=== PATIENT | female | born 1960 | race Caucasian/White ===

== ENCOUNTER 2025-02-13 13:46 | Inpatient (IN) | payer BC, SELFPAY ==
[2025-02-13] VITALS (14 sets, daily range): BP systolic 105–133; BP diastolic 4–84; BMI 18.8; BMI 19.0
[2025-02-13 10:53] LABS: Hematocrit 40.9 % (37.0-47.0); Hemoglobin 13.7 g/dL (12.0-16.0); Mean Corp Hgb Conc. 33.5 g/dL (33.0-37.0); Mean Corpuscular Volume 87.0 fL (81.0-99.0); Nucleated Red Blood Cells % 0 %; Platelet Count 355 10^3/uL (130-400); Red Cell Dist. Width 12.7 % (11.5-14.5)
--- NOTE | 2025-02-13 10:55 | ED.GENMED ---
History of Present Illness
General
Chief Complaint: Cough
Time Seen by Provider: 02/13/25 10:32
History of Present Illness
History of Present Illness:
64-year-old female with history of tobacco abuse, asthma, anxiety presenting to the emergency department for persistent cough and shortness of breath. Patient reports ongoing symptoms for about a month. She was initially seen by her doctor, had a
chest x-ray that showed a pneumonia. She was subsequently prescribed about 3 days of antibiotics, however notes that she did not have any interval improvement. She then was given a steroid, however was still symptomatic. She just [place]
the local beach, notes while she was there was very short of breath with minimal exertion, continues to cough. Denies any fever. Denies chest pain. Reports that her heart rate has also been very elevated. Denies any history of blood clots,
recent surgery, recent travel, exogenous estrogen. Denies any swelling to her legs. Patient went to urgent care prior to arrival and they noted that her chest x-ray was significantly worse than prior, prompting her to come to the hospital. Denies
additional acute medical complaints
Past History
Past History
ED Past Medical History: COPD and Other (Patient is medicated currently with Tegretol for facial pain.)
ED Past Surgical History: Gynecological
Social History
Tobacco: Smoker
Alcohol: None
Drug: None
Living: alone
Employment: Employed
Family History
Family History: Other (Noncontributory)
Phy Exam
Physical Exam
Physical Exam:
General: Well-appearing, no clinical signs of dehydration, nontoxic and in no acute distress
HEENT: protecting airway
Neck: appears supple
CV: Tachycardic, regular rhythm
Resp: Mild tachypnea with slight end expiratory wheezing
Abd: No distention
Extremities: No deformities, no swelling
Neuro: alert, no focal neurologic deficit
: deferred
Rectal: deferred
Psych: Normal affect
Skin: Intact
Course
Orders/Labs/Results
Orders:
Orders
02/13/25 08:46
EKG [Electrocardiogram (*1)] Urgent
Reason for Study: Tachycardia
EKG- Treatment ONCE
02/13/25 10:14
CR Chest - 2 Views Urgent
Comment:
Reason For Exam: shortness of breath
02/13/25 10:39
Complete Blood Count/With Diff Urgent
Comprehensive Metabolic Panel Urgent
Magnesium Urgent
Pro-BNP [NT-proBNP] Urgent
02/13/25 10:48
CT Chest PE Study Urgent
Comment:
Reason For Exam: abnormal CT, tachycardic, SOB
02/13/25 10:52
Ipratropium/Albuterol Sulfate [Duoneb] 3 ml INH R NOW ONE
Abnormal Lab Results
02/13/25
10:39
WBC 12.4 H 10^3/uL
(4.8-10.8)
Abs Immat Gran (auto) 0.1 H 10^3/uL
(0-0.05)
Absolute Neuts (auto) 9.9 H 10^3/uL
(1.4-6.5)
Absolute Monos (auto) 0.9 H 10^3/uL
(0.1-0.6)
Neutrophils % 80.0 H %
(42.2-75.2)
Lymphocytes % 11.8 L %
(20.5-51.1)
BUN 26 H mg/dl
(7-17)
Glucose 141 H mg/dl
(70-99)
02/13/25 10:39
02/13/25 10:39
Vital Signs
Initial and Last Documented VS:
Initial Vital Signs
Temp Pulse Resp BP Pulse Ox
97.5 F 121 18 125/83 95
02/13/25 08:40 02/13/25 08:40 02/13/25 08:40 02/13/25 08:40 02/13/25 08:40
Last Documented Vital Signs
Temp Pulse Resp BP Pulse Ox
97.5 F 100 20 121/77 100
02/13/25 11:59 02/13/25 11:59 02/13/25 11:59 02/13/25 11:59 02/13/25 11:59
MDM/Problems Addressed
MDM/Problems Addressed:
64-year-old female with history of tobacco abuse and asthma presenting for persistent cough for the past month. Vital signs on arrival significant for tachycardia.
On exam patient is in no acute respiratory distress, slightly tachypneic. Slight end expiratory wheezing on lung exam without focal abnormal lung sounds. Concern for failure of outpatient therapy and worsening pneumonia. Will obtain chest x-ray
imaging to better evaluate as well as laboratory analysis in the setting of dyspnea and tachycardia.
11:00 - Chest x-ray shows large consolidation to the right lung field. Given patient's tobacco abuse, concern for possible mass and underlying malignant process, particularly given duration of symptoms. PE is also consideration in the setting of
potential malignancy tachycardia, dyspnea. For this reason we will obtain CT PE imaging
13:00 -no evidence of PE, however CT is concerning for large mass in the right upper lobe with lymphatic spread. Given patient's presenting hypoxia and persistent tachycardia, feel patient warrants admission. Patient updated, as well as daughter
at bedside.
*Pulse Oximetry
SaO2: 96
Nasal Cannula flow liters per minute: 3
Oxygen Mode of Delivery: Room air
Patient hypoxic: no
*EKG
Interpreted by ED Provider?: Yes
EKG Intrepretation Date: 02/13/25
EKG Intrepretation Time: 10:58
Interpretation: normal
Comparison EKG: no changes
Heart Rate: 106
Rate: tachycardiac
Rhythm: sinus
[place]: normal axis
Interval: normal interval
QRS Pattern: normal QRS
Ischemia: no ischemia
*Critical Care Note
Total Time (30-74mins, 75-104mins- exclusive of procedures): Not Applicable
ED Attending Note
-
Portions of this chart may have been created with voice recognition software.� Occasional wrong word or��sound alike� substitutions may have occurred due to the inherent limitations of voice recognition software.
Discharge Plan
Departure
Prescriptions:
No Action
albuterol sulfate 90 mcg/actuation Hfa Aerosol Inhaler
1 inh INHALATION Q4H PRN (Reason: SOB)
diazepam 5 mg Tablet
5 mg PO BID PRN (Reason: anxiety)
mirtazapine 7.5 mg Tablet
7.5 mg PO HS
Trelegy Ellipta 200-62.5-25 mcg Blister With Device
1 inh INHALATION DAILY
Referrals:
Shaq Maynard DO [Family Provider, Family Practice]
Interventions
Interventions:
*Risk Screen - Suicide Last Done: 02/13/25 08:40
*General Assessment Last Done: 02/13/25 08:40
*Neglect/Abuse Screening Last Done: 02/13/25 10:49
*ED COVID-19 Vaccine History Last Done: 02/13/25 08:40
ED- Pulmonary Assessment Last Done: 02/13/25 10:49
Discharge Date and Time
Print Language: BANGLADESHI
[2025-02-13 11:15] LABS: ALT (SGPT) 13 U/L (0-35); AST (SGOT) 20 U/L (14-36); Albumin 3.8 g/dl (3.5-5.0); Alkaline Phosphatase 64 U/L (38-126); Blood Urea Nitrogen 26 mg/dl (7-17); Calcium 9.9 mg/dl (8.4-10.2); Carbon Dioxide 30 mmol/L (22-30); Chloride 105 mmol/L (98-107); Estimated Creatinine Clearance 73 ml/min; Glucose 141 mg/dl (70-99); Magnesium 2.0 mg/dl (1.6-2.3); Potassium 3.9 mmol/L (3.5-5.1); Sodium 139 mmol/L (135-145); Total Protein 6.4 g/dl (6.3-8.2); eGFR > 60.00
[2025-02-13] MEDS: DUONEB 3 ML INH ×3 (11:51→20:32)
--- NOTE | 2025-02-13 13:19 | HPS.HSE ---
Family Physician
-
Family Physician: Shaq Maynard
Chief Complaint
-
worsening cough and SOB: failed OP ABx + PO steroids
History of Present Illness
64F HX tobacco abuse and asthma seen at ER:
worsening cough and SOB for the past month.
- Seen by PCP at onset, started on abx, then steroids, without improvement.
- Went to urgent care a few days ago, CXR looked worse, started on levofloxacin yesterday.
- Increasing dyspneic. Hypoxic and tachy here. Some scattered wheezes on lung exam, slight tachypnea.
CXR showed large infiltrate/mass in RUL, so did CT which shows lung cancer with lymph spread.
Medical History
Past Medical History
Past Medical History: Reports Asthma and Psychiatric (anxiety and depression)
Past Surgical History: Reports None
Social History
Tobacco: Smoker
Family History
Family History: Not pertinent
Allergies / Home Medications
Allergies reflects when Allergies were last updated in [facility].
Home Medications with original date entered in [facility]
Allergy/Medication List:
Allergies
Allergy/AdvReac Type Severity Reaction Status Date / Time
Penicillins Allergy Hives Verified 02/13/25 08:44
Home Medications
albuterol sulfate 90 mcg/actuation aerosol inhaler 1 inh inhalation Q4H PRN SOB 02/13/25
diazepam 5 mg tablet 5 mg PO BID PRN anxiety 02/13/25
fluticasone fur. 200 mcg-umeclid 62.5 mcg-vilant 25 mcg inhalat.powder (Trelegy Ellipta) 1 inh inhalation DAILY 02/13/25
mirtazapine 7.5 mg tablet 7.5 mg PO HS 02/13/25
Review of Systems
-
Constitutional: Reports No Symptoms
EENT: Reports No Symptoms
Respiratory: Reports See HPI, Cough and Trouble Breathing
Cardiac: Reports No Symptoms
Abdomen/GI: Reports No Symptoms
: Reports No Symptoms
Musculoskeletal: Reports No Symptoms
Skin: Reports No Symptoms
Neurological: Reports No Symptoms
Endocrine: Reports No Symptoms
Hematologic/Lymphatic: Reports No Symptoms
Psych: Reports No Symptoms
Physical Exam
Vital Signs
Vital Signs
Temp Pulse Resp BP Pulse Ox
97.5 F 100 20 121/77 100
02/13/25 11:59 02/13/25 11:59 02/13/25 11:59 02/13/25 11:59 02/13/25 11:59
Physical Exam
General: Well Developed, Well Nourished and No Apparent Distress
HEENT: NormoCephalic, Moist mucous membranes and Atraumatic
Respiratory: Wheezes
Cardiac: S1/S2 and Regular Rhythm; No Murmur or Rub
GI: Soft, Non Tender, Non Distended and Normal Bowel Sounds; No Organomegaly
Rectal: Deferred by Provider
Musculoskeletal: No Clubbing, No Cyanosis and No Edema
Skin: No Rash
Neuro: Nonfocal/grossly intact
Laboratory Results
-
02/13/25 10:39
02/13/25 10:39
Laboratory Results
Total Bilirubin 0.6 mg/dl (0.2-1.3) 02/13/25 10:39
AST 20 U/L (14-36) 02/13/25 10:39
ALT 13 U/L (0-35) 02/13/25 10:39
Alkaline Phosphatase 64 U/L (38-126) 02/13/25 10:39
Data Reviewed
-
Diagnostic Radiology: Report Reviewed by me
CT Scan: Report Reviewed by me
Lab Data: Labs Reviewed by me
Impression/Plan
-
Selected Entries
02/13/25
10:49 02/13/25
10:58
SaO2 96 96
Nasal Cannula flow liters per minute 3 3
Laboratory Tests
06/15/10 12/17/22 02/13/25
20:20 10:39 10:39
WBC 12.4 H
Hgb 14.8 13.7
Plt Count 355
INR 0.88
BUN 26 H
Creatinine 0.6
eGFR > 60.00
Thj-M-Cojdafozqxt Pept 37.2
CXR
Large dense right upper lobe opacification most likely representing pneumonia. Malignancy cannot be excluded.
02/13/25 CHEST CTA WITH IV CONTRAST
1. LARGE 7.2 cm RIGHT UPPER LOBE LUNG CANCER.
2. SEVERE METASTATIC RIGHT HILAR and RIGHT PARATRACHEAL LYMPHADENOPATHY.
3. Small metastatic right supraclavicular and subcarinal lymph nodes.
4. Mild airspace opacity in the anterior segment of the right upper lobe (mild pneumonia or atelectasis).
5. Small sub-5 mm pulmonary nodules in both lower lobes (possibly pulmonary metastases).
6. 1.6 cm mass in the left adrenal gland (possible metastasis).
No Prior hospitalist admission:
ASSESSMENT & PLAN
Hypoxic RI , worsening cough and SOB: failed OP ABx + PO steroids
- stable on NC O2 3 L
RUL large lung mass - CA with diffuse LAD likely stage IV
Severe metastatic R HLA and paratracheal LAD
Small metastatic Rt SCL and subcarinal LAD
Life long heavy Smoker
- IR , Pul & Onco consulted for diagnose and staging
Mild airspace opacity in the anterior segment of the right upper lobe (mild pneumonia or atelectasis).
Presumed Obstructive PNA
- HX PCN allergy
- IV Vanco, LVQ and Metronidazole
Element of acute asthmatic bronchitics with bronchospasm
- IV Decadron 4 mg q12h
- Duo Nebs qid and PRN
Tobacco use disorder
Life long heavy Smoker
- Nicotine [employer]
DVT Px: SQH
Full code
IP TLM
--- NOTE | 2025-02-13 14:30 | EDRN ---
this RN called pharmacy and notified them that admission orders were processed
--- NOTE | 2025-02-13 15:37 | EDRN ---
this RN called the receiving unit and notified them that paper report was going to be tubed up
[2025-02-13] MEDS: VALIUM 5 MG PO (16:30)
[2025-02-13] MEDS: FLAGYL 500 MG 100 IV (17:55)
[2025-02-13] MEDS: DECADRON 4 MG IV (18:32)
[2025-02-13] MEDS: VANCOCIN 200 IV (19:07)
[2025-02-13] MEDS: REMERON 7.5 MG PO (19:14)
[2025-02-13] MEDS: HEPARIN 5000 UNITS SC (19:57)
[2025-02-13] MEDS: LEVAQUIN 100 IV (20:18)
--- NOTE | 2025-02-13 21:12 | PHA.VAN.IN ---
Assessment
- Assessment
Renal Function: Appears similar to baseline
Maximum Temperature: 98.7
Minimum Temperature: 97.5
Concomitant Antimicrobials: Levofloxacin 500 mg IV q8h, Flagyl 500 mg IV q8h
AUC Dosing Plan
- Dosing Variables
Dosing Weight (kg): 48
Dosing CrCl (ml/min): 74
Vd coefficient (L/kg): 34
- Empiric Dosing
Initial / Loading Dose: 1000 mg LD (~20 mg/kg) x 1 dose
Maintenance Regimen: 500 mg IV q12h
Estimated AUC (mcg*h/mL): 461
Estimated Peak (mcg*h/mL): 26.9
Estimated Trough (mcg/ml): 13
Estimated Half Life (H): 10.5
- Monitoring
Peak level is ordered to be drawn (date/time): 02/14 at 20:30 PM
Trough level is ordered to be drawn (date/time): 02/15 at 5:30 AM
MRSA Screen: Ordered per protocol
Pharmacokinetics Vancomycin I
- -
Patient Age: 64
Patient Sex: Female
Vancomycin Day #: 1
Indication: Pulmonary/Respiratory
Requesting Provider: Dr. Neumann
Pertinent Antimicrobial Allergies:
PCN- Hives
Height / Weight:
Height 5 ft 3 in
Actual Weight 48.625 kg
Pertinent Past Medical History: Asthma, BMI: 19
- Vital Signs / Lab Results
Temp Pulse Resp BP Pulse Ox
98.7 F 102 18 118/65 98
02/13/25 19:00 02/13/25 20:34 02/13/25 20:34 02/13/25 19:00 02/13/25 20:34
Lab Results - Hematology
02/13/25 02/13/25 02/13/25
08:54 09:11 10:39
WBC Cancelled Cancelled 12.4 H
Lab Results - Chemistry
02/13/25 02/13/25 02/13/25
08:54 09:11 10:39
BUN Cancelled Cancelled 26 H
Creatinine Cancelled Cancelled 0.6
Estimated Creat Clear Cancelled Cancelled 73
Albumin Cancelled Cancelled 3.8
[2025-02-14] VITALS (14 sets, daily range): BP systolic 96–141; BP diastolic 48–119
[2025-02-14] MEDS: FLAGYL 500 MG 100 IV ×3 (01:10→18:01)
[2025-02-14] MEDS: VANCOCIN HCL 500 MG 100 IV (05:34)
[2025-02-14 07:46] LABS: Hematocrit 37.1 % (37.0-47.0); Hemoglobin 12.2 g/dL (12.0-16.0); Mean Corp Hgb Conc. 32.9 g/dL (33.0-37.0); Mean Corpuscular Volume 86.3 fL (81.0-99.0); Platelet Count 350 10^3/uL (130-400); Red Cell Dist. Width 12.7 % (11.5-14.5)
--- NOTE | 2025-02-14 07:50 | CON.ONC ---
Consultation
-
Date Consultation Performed: 02/14/25
Requesting Provider: Sabrina Edge
Impression
Impression
Right upper lobe mass, 7 cm concerning for malignancy
- CT Chest showed RUL mass and right hilar and right paratracheal lymphadenopathy, supraclav and subcarinal LNs
- biopsy and bronchial washing with pulm scheduled for this afternoon
Likely mild pneumonia
-started on antibiotics per primary team management
Anxiety
- baseline anxiety, managed w/o medication
Facial Pain
- used to see neurology, but not recently
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
Plan
Plan
Pulmonology procedure today, will await path report
Ordered ativan 0.5 mg q4hr prn for anxiety whild hospitalized
Antibiotics per primary team management
Will continue to follow while admitted.
Patient History
History of Present Illness
Patient is a 64 year old female with PMH of tobacco abuse, anxiety and depression, presenting to the ED with one month of progressive SOB and cough. Patient saw her PCP for her symptoms and was prescribed antibiotics followed by steroids with no
improvement in symptoms. Patient went to urgent care this week and had a chest x ray this week that 'looked worse' and was started on Levaquin 02/12. Patient admitted with worsening symptoms.
In the ED, patient was hypoxic and tachycardic. Patient had a CT Chest which revealed a large 7.2 cm Right upper lobe lung cancer, severe metastatic right hilar and right paratracheal lymphadenopathy, small met right supraclavicular and subcarinal
LNs, small pulm nodules in both lower lobes, a 1.6 cm mass in the left adrenal gland and a mild airspace opacity in the anterior segment of the RUL, possibly mild pneumonia.
CT AP showed no acute abnormalities. 2 sub-cm low-attenuation lesions present but too small to characterize.
Patient was continued on Levaquin, started on vancomycin and metronidazole. Patient does not need O2 supplement regularly, but was required O2 in the ED. Consults were placed for oncology, pulmonology and IR.
Today patient is seen at the bedside. Patient is feeling alright, but would like to move forward with the biopsy today. Patient states she is not sleeping well and that her anxiety is increasing since being admitted. Patient has a cough and some
SOB. Patient is hungry as she did not eat much yesterday and has been NPO ahead of her procedure today. Patient denies all other ROS. Patient is on room air. Pulmonary was present during visit and discussed the plan for bronchial washing and biopsy
of her lymph nodes. They will plan for the procedure this afternoon.
Past-Medical/Surgical History
Medical:
Asthma
Anxiety
Depression
Surgical:
Reports None
Patient Medication
�Medication �Instructions �Recorded �Confirmed �Last Taken �Type
albuterol sulfate 90 mcg/actuation 1 inh inhalation R Q4HPRN PRN SOB 02/13/25 02/13/25 Unknown History
aerosol inhaler
diazepam 5 mg tablet 5 mg PO BIDPRN PRN anxiety 02/13/25 02/13/25 Unknown History
fluticasone fur. 200 mcg-umeclid 1 inh inhalation R DAILY 02/13/25 02/13/25 02/12/25 History
62.5 mcg-vilant 25 mcg
inhalat.powder (Trelegy Ellipta)
ibuprofen 400 mg tablet 400 mg PO Q6HPRN PRN MILD PAIN 02/13/25 02/13/25 02/03/25 History
levofloxacin 500 mg tablet 500 mg PO DAILY 02/13/25 02/13/25 02/12/25 History
mirtazapine 7.5 mg tablet 7.5 mg PO HS 02/13/25 02/13/25 02/12/25 History
Active Medications
Generic Name Dose Route Start Last Admin
Trade Name Freq PRN Reason Stop Dose Admin
Acetaminophen 650 mg 02/13/25 14:29
Acetaminophen 325 Mg Tablet PO 03/13/25 14:28
Q4HPRN PRN
if temp > 101 F
Al Hydrox/Mg Hydrox/Simethicone 15 ml 02/13/25 14:29
Mag/Al/Simethicone Suspension 30 Ml Cup PO 03/13/25 14:28
QIDPRN PRN
dyspepsia
Albuterol/Ipratropium 3 ml 02/13/25 16:00 02/13/25 20:32
Ipratropium 0.5/Albuterol 3 Mg (3 Ml Ampul) INH 3 ml
R QID EDD Administration
Protocol
Albuterol/Ipratropium 3 ml 02/13/25 14:29
Ipratropium 0.5/Albuterol 3 Mg (3 Ml Ampul) INH
R Q4HPRN PRN
sob and wheeze
Protocol
Dexamethasone Sodium Phosphate 4 mg 02/13/25 19:00 02/13/25 18:32
Dexamethasone 4 Mg/Ml 1 Ml Vial IV 03/13/25 18:59 4 mg
Q12 EDD Administration
Diazepam 5 mg 02/13/25 14:29 02/13/25 16:30
Diazepam 5 Mg Tablet PO 03/13/25 14:28 5 mg
BID PRN Administration
anxiety
Heparin Sodium 5,000 units 02/13/25 20:00 02/13/25 19:57
Heparin 5,000 Units/Ml 1 Ml Vial SC 03/13/25 19:59 5,000 units
Q12 EDD Administration
Levofloxacin/Dextrose 500 mg in 100 mls @ 100 mls/hr 02/13/25 18:00 02/13/25 20:18
Levaquin IV 100 mls
Q24H EDD Administration
Metronidazole 100 mls @ 100 mls/hr 02/13/25 18:00 02/14/25 01:10
Flagyl 500 Mg IV 100 mls
Q8H EDD Administration
Vancomycin HCl 100 mls @ 100 mls/hr 02/14/25 06:00 02/14/25 05:34
Vancocin Hcl 500 Mg IV 100 mls
Q12H EDD Administration
Protocol
Mirtazapine 7.5 mg 02/13/25 20:00 02/13/25 19:14
Mirtazapine 7.5 Mg Regular Release Tablet PO 03/13/25 19:59 7.5 mg
HS@2000 EDD Administration
Sodium Chloride 0 flush 02/13/25 18:00
Sodium Chloride 0.9% (Flush) Syringe IV 03/13/25 17:59
PER PROTOCOL EDD
Review of Systems
-
History Source: Patient
Constitutional: Reports No Symptoms
EENT: Reports No Symptoms
Respiratory: Reports Cough and Trouble Breathing
Cardiac: Reports No Symptoms
GI: Reports No Symptoms
: Reports No Symptoms
Musculoskeletal: Reports No Symptoms
Skin: Reports No Symptoms
Hematologic/Lymphatic: Reports No Symptoms
Psych: Reports Anxious
Physical Exam
-
General: No Apparent Distress
Cardiology: Normal Sinus Rhythm
Pulmonary: Wheezes
GI: Soft and Normal Bowel Sounds
Extremities: Pulses Present
Skin: Warm and Dry
Psych: Calm and Intact Judgement/Insight
Labs
Lab Results
WBC 8.8 10^3/uL (4.8-10.8) 02/14/25 07:17
RBC 4.30 10^6/uL (4.20-5.40) 02/14/25 07:17
Hgb 12.2 g/dL (12.0-16.0) 02/14/25 07:17
Hct 37.1 % (37.0-47.0) 02/14/25 07:17
MCV 86.3 fL (81.0-99.0) 02/14/25 07:17
MCH 28.4 pg (27.0-31.0) 02/14/25 07:17
MCHC 32.9 g/dL (33.0-37.0) L 02/14/25 07:17
RDW 12.7 % (11.5-14.5) 02/14/25 07:17
Plt Count 350 10^3/uL (130-400) 02/14/25 07:17
MPV 8.8 fL (7.4-10.4) 02/14/25 07:17
Abs Immat Gran (auto) 0.1 10^3/uL (0-0.05) H 02/13/25 10:39
Absolute Neuts (auto) 9.9 10^3/uL (1.4-6.5) H 02/13/25 10:39
Absolute Lymphs (auto) 1.5 10^3/uL (1.2-3.4) 02/13/25 10:39
Absolute Monos (auto) 0.9 10^3/uL (0.1-0.6) H 02/13/25 10:39
Absolute Eos (auto) 0.0 10^3/uL (0-0.7) 02/13/25 10:39
Absolute Basos (auto) 0.0 10^3/uL (0-0.2) 02/13/25 10:39
Immature Gran % 0.4 % (0-0.5) 02/13/25 10:39
Neutrophils % 80.0 % (42.2-75.2) H 02/13/25 10:39
Lymphocytes % 11.8 % (20.5-51.1) L 02/13/25 10:39
Monocytes % 7.4 % (1.7-9.3) 02/13/25 10:39
Eosinophils % 0.2 % (0-6) 02/13/25 10:39
Basophils % 0.2 % (0-2) 02/13/25 10:39
Creatinine 0.6 mg/dL (0.6-1.0) 02/13/25 10:39
Vital Signs
Vital Signs
Temp Pulse Resp BP Pulse Ox
98.0 F 109 19 129/81 97
02/14/25 07:00 02/14/25 07:00 02/14/25 07:00 02/14/25 07:00 02/14/25 07:00
[2025-02-14] MEDS: DUONEB 3 ML INH ×4 (07:53→19:24)
--- NOTE | 2025-02-14 08:04 | CON.PUL ---
Consultation
Consultation Request
Date/Time Consultation Requested: 02/14
Date/Time Consultation Performed: 02/14
Reason for Consultation: Pulmonary, abnormal CAT scan, shortness of breath
Medical History
-
History of Present Illness:
History obtained from the patient and also reviewing medical records. Patient is a pleasant 64-year-old female with history of COPD whose symptoms dates back to approximately 4 weeks ago. She developed increased chest congestion, cough and
shortness of breath. She was seen in urgent care 4 weeks ago, treated with Levaquin without significant improvement. She then saw her primary physician about 3 weeks ago, given steroids with some improvement but symptoms persisted. She went [place] a
[place] and had more shortness of breath while at the beach, prompting repeat visit to urgent care upon return to home, had a chest x-ray which showed persistent pneumonia, and was told to come to the ED. She does have some
nonspecific chest discomfort but this is chronic, she states it happens in the morning and in the PM. It is nonpleuritic. It is not changed in the last 4 weeks. She denies fevers, chills but admits to night sweats. She has lost weight, about 6
pounds, has had a poor appetite for the past month. She denies nausea, emesis, diarrhea, blood in urine or stool, falls, syncope, swelling in the legs. She admits to a fast heart rate but denied any palpitations. Upon arrival to [place] [facility], she was afebrile, pulse 121, breathing 18, blood pressure 125/83, 95%. She was in no acute distress. She was given oxygen therapy We are asked to comment on her pulmonary process
Of note she denies significant sick contacts, extensive travel except recently to the [place] over the last 2 weeks
She has received anesthesia in the past for gynecological surgery without any complications
Since admission she feels much improved. She is asking if she can go home soon
.
PMH: Suspect COPD. She denies history of heart disease, heart attack, stroke, liver disease, kidney disease, thyroid disease, cancer, thromboembolic disease
Past Medical History
Past Medical History: None (See above)
Past Surgical History: None (See above)
Social History
Tobacco: Smoker ([id number], was smoking a pack a day, smokes about 6 to 8 cigarettes a day)
Alcohol: None
Drug: None
Living: Alone
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
Family History
Family History: Other (Brother from alcoholism. Sister alive. Family history negative for lung disease, lung cancer. Children are healthy)
Allergies / Home Medications
Allergies
Allergy/AdvReac Type Severity Reaction Status Date / Time
Penicillins Allergy Hives Verified 02/13/25 08:44
Home Medications
�Medication �Instructions �Recorded �Confirmed �Last Taken �Type
albuterol sulfate 90 mcg/actuation 1 inh inhalation R Q4HPRN PRN SOB 02/13/25 02/13/25 Unknown History
aerosol inhaler
diazepam 5 mg tablet 5 mg PO BIDPRN PRN anxiety 02/13/25 02/13/25 Unknown History
fluticasone fur. 200 mcg-umeclid 1 inh inhalation R DAILY 02/13/25 02/13/25 02/12/25 History
62.5 mcg-vilant 25 mcg
inhalat.powder (Trelegy Ellipta)
ibuprofen 400 mg tablet 400 mg PO Q6HPRN PRN MILD PAIN 02/13/25 02/13/25 02/03/25 History
levofloxacin 500 mg tablet 500 mg PO DAILY 02/13/25 02/13/25 02/12/25 History
mirtazapine 7.5 mg tablet 7.5 mg PO HS 02/13/25 02/13/25 02/12/25 History
Review of Systems
-
All other systems: Negative unless noted
Vitals / Labs / Diagnostic Testing
Vital Signs
Temp Pulse Resp BP Pulse Ox
98.0 F 101 18 129/81 93
02/14/25 07:00 02/14/25 07:56 02/14/25 07:56 02/14/25 07:00 02/14/25 07:56
Lab Data
02/14/25 07:17
Diagnostic Testing:
Physical Exam
-
HEENT: Normocephalic and Anicteric
Cardiovascular: S1/S2, Regular Rhythm (Mild tachycardia), Murmur (n), Rub (n) and Peripheral Edema (n)
Respiratory: Wheeze (Few scattered expiratory), Rales (n), Rhonchi (n), Non-Labored Respirations and Other (No crepitus)
GI: Soft, Non Distended and Non Tender
Neurology: Awake, Alert, Oriented and No Motor Deficits
Skin: Good Color and Other (No clubbing, no cyanosis)
General: Comfortable
Assessment
-
64-year-old female 40+ pack years for smoking ongoing presents with 4 weeks of increased productive cough, chest congestion, shortness of breath. She completed a course of Levaquin 3-1/2 weeks ago, steroids 3 weeks ago and was told to come to the
ED after persistent abnormality on chest x-ray and persistent shortness of breath. CT angiogram negative for pulm embolism. We are asked to comment on her CT abnormality
Right upper lobe mass, 7 cm
Concerning for malignancy
Mediastinal and right hilar adenopathy
1.6 cm supraclavicular lymph node on the right
3.1 cm right hilar adenopathy, 5 cm right paratracheal adenopathy, 1.7 cm subcarinal
Acute COPD exacerbation, suspected mild
Productive cough, chest congestion, shortness of breath
For 4 weeks
Failed outpatient Levaquin, steroid therapy
Nonspecific weight loss
Tachycardia
[id number] history of smoking, ongoing
History of migraine headaches
Plan/recommendations
At this time, Patient appears to be comfortable
She feels significant improved since admission, likely from steroids, nebulized therapy, antibiotics
Given chronicity of symptoms, imaging findings, worrisome for malignant process
Patient would be considered high risk
Moving forward
Continue with IV steroids, antibiotics, nebulized therapy for COPD exacerbation
Chest exam with minimal wheeze, air exchange good
She feels much improved since admission
Discussed at length likelihood of underlying malignancy
Offered patient bronchoscopy today given chronicity of symptoms to assess right upper lobe and adenopathy
Patient is agreeable to bronchoscopy
Has been maintained n.p.o. since early this morning
Plan for routine bronchoscopy with EBUS
Will perform brushing and lavage of right upper lobe posterior segment (no C arm needed)
Will perform sampling of Station 4R, 7, 11R
Will last pathology to assess (SHIRIN)
Reviewed in length the risks of procedure including anesthesia, including stroke, heart attack, respiratory complication
Reviewed risk of bleeding, pneumothorax, mediastinal infection
EKG reviewed, sinus tachycardia
This has improved since admission, heart rate 120, now 100
Patient denies any symptoms at this time concerning for malignant process
All questions answered
Reviewed with primary service
[2025-02-14 08:12] LABS: Blood Urea Nitrogen 18 mg/dl (7-17); Calcium 9.3 mg/dl (8.4-10.2); Carbon Dioxide 29 mmol/L (22-30); Chloride 104 mmol/L (98-107); Estimated Creatinine Clearance 74 ml/min; Glucose 139 mg/dl (70-99); Potassium 4.0 mmol/L (3.5-5.1); Sodium 136 mmol/L (135-145); eGFR > 60.00
[2025-02-14] MEDS: DECADRON 4 MG IV ×2 (08:29→21:05)
[2025-02-14] MEDS: FLUSH (NSS) 2 FLUSH IV (08:32)
[2025-02-14] MEDS: HEPARIN SC ×2 (08:34→21:05)
--- NOTE | 2025-02-14 09:22 | PHA.VAN.FU ---
Vancomycin Assessment / Plan
- Assessment
Renal Function: Stable
WBC's are: WNL
In the past 24 hrs, patient has been: Afebrile
Concomitant Antimicrobials: metronidazole, levofloxacin
- Dosing Plan
Continue: vancomycin 500mg Q12H
- Monitoring Plan
Peak Level: 02/14 @ 2030
Trough Level: 02/15 @ 05:30
- Follow Up
Pharmacy will continue to follow.
Vancomycin Follow UP
- -
Patient Age: 64
Patient Sex: Female
Vancomycin Day #: 2
Indication: Pulmonary/Respiratory
Requesting Provider: Dr. Neumann
Pertinent Antimicrobial Allergies:
PCN- Hives
Height / Weight:
Height 5 ft 3 in
Actual Weight 48.625 kg
Pertinent Past Medical History: Asthma, BMI: 19
- Vital Signs / Lab Results
Temp Pulse Resp BP Pulse Ox
98.0 F 101 18 129/81 93
02/14/25 07:00 02/14/25 07:56 02/14/25 07:56 02/14/25 07:00 02/14/25 07:56
Lab Results - Hematology
02/13/25 02/13/25 02/13/25
08:54 09:11 10:39
WBC Cancelled Cancelled 12.4 H
02/14/25
07:17
WBC 8.8
Lab Results - Chemistry
02/13/25 02/13/25 02/13/25
08:54 09:11 10:39
BUN Cancelled Cancelled 26 H
Creatinine Cancelled Cancelled 0.6
Estimated Creat Clear Cancelled Cancelled 73
Albumin Cancelled Cancelled 3.8
02/14/25
07:16
BUN 18 H
Creatinine 0.6
Estimated Creat Clear 74
Albumin
Microbiology Results
02/14/25 05:52 Nasal Screen MRSA (PCR) - Final
Nose MRSA not detected - performed by PCR methodology.
[2025-02-14] MEDS: ATIVAN 0.5 MG PO (10:30)
[2025-02-14] MEDS: DUONEB INH (15:34)
--- NOTE | 2025-02-14 16:02 | W.PN.HOSP.TC ---
Today's Communication/Plan
-
Endobronchial evaluation
IV antibiotics
Corticosteroids
Home O2 assessment
Assessment / Plan
Assessment / Plan
Impression:
64 years old female with 40+ pack year tobacco smoking presenting with ongoing symptoms including exertional dyspnea, productive cough, congestion. Patient reported weight loss. Patient reported no response to outpatient oral antibiotics and
corticosteroids.
Right upper lobe mass.
Mediastinal lymphadenopathy
Acute COPD exacerbation.
Reactive sinus tachycardia.
Weight loss unintentional.
History of migraine headaches.
Mild to moderate malnutrition with BMI of 19
Plan:
CT chest
1. LARGE 7.2 cm RIGHT UPPER LOBE LUNG CANCER.
2. SEVERE METASTATIC RIGHT HILAR and RIGHT PARATRACHEAL LYMPHADENOPATHY.
3. Small metastatic right supraclavicular and subcarinal lymph nodes.
4. Mild airspace opacity in the anterior segment of the right upper lobe (mild pneumonia or atelectasis).
5. Small sub-5 mm pulmonary nodules in both lower lobes (possibly pulmonary metastases).
6. 1.6 cm mass in the left adrenal gland (possible metastasis).
Endobronchial evaluation today.
Oxygen assessment.
Empiric antibiotics continue with cefepime, metronidazole. Okay to stop vancomycin (MRSA negative)
LABA
IV steroids, currently on dexamethasone 4 mg IV every 12.
Continue anxiety control with Valium
DVT prophylaxis, if declined pharmacological, start mechanical
Anticipated Discharge: 24 - 48 hours
Subjective/Interval History
-
Date of Service: February 14, 2025
Objective Data
-
Labs:
Laboratory Results
02/14/25 02/14/25
07:16 07:17
WBC 8.8
Hgb 12.2
Hct 37.1
Plt Count 350
Sodium 136
Potassium 4.0
Chloride 104
Carbon Dioxide 29
BUN 18 H
Creatinine 0.6
Glucose 139 H
Calcium 9.3
Vital Signs:
Vital Signs
Temp Pulse Resp BP Pulse Ox
98.2 F 100 20 125/78 94
02/14/25 11:00 02/14/25 11:18 02/14/25 11:18 02/14/25 11:00 02/14/25 11:18
I&O
02/13/25 02/14/25 02/15/25
06:59 06:59 06:59
Intake Total 580 / 580
Balance 580 / 580
Physical Exam
-
General: Well Developed and No Apparent Distress
HEENT: Normocephalic, Atraumatic and Moist Mucous Membranes
Respiratory: Clear to Auscultation
Cardiac: Regular Rhythm and S1/S2; Negative Murmur, Rub or Gallop
GI: Soft, Nontender, Nondistended and Normal Bowel Sounds; Negative Organomegaly
Rectal: Deferred by Provider
Musculoskeletal: No Clubbing, No Cyanosis and No Edema
Skin: Negative Rash
Neuro: Nonfocal/Grossly Intact
--- NOTE | 2025-02-14 17:10 | CM ---
Alert awake oriented patient who lives alone in a 2 story home with 0 steps to enter and 14 steps to bed/bathroom. She is independent in activates of daily living.She does drive .She uses no adaptive devices.Offered VN she declined need.
No VN in past . No SNF hx
Pharmacy [facility]
PCP Dr Sepulveda
PLAN Home with no needs
[2025-02-14] MEDS: LEVAQUIN 100 IV (19:31)
[2025-02-14] MEDS: REMERON 7.5 MG PO (21:05)
[2025-02-14] MEDS: AMBIEN 5 MG PO (21:05)
[2025-02-15] MEDS: FLAGYL 500 MG 100 IV ×2 (02:13→10:22)
--- NOTE | 2025-02-15 02:28 | DOWNTIME ---
There was a [employer] Downtime on 02/15/2025 from 0100 to 02/15/2025 at 0220. Downtime documentation of patient's care, including medication administrations, has been reconciled in the electronic record per guidelines. Refer to the
patient's paper chart under the miscellaneous tab to see printed paper medication records and downtime forms.
[2025-02-15 03:00] VITALS: BP 113/73
[2025-02-15] MEDS: DUONEB 3 ML INH ×2 (07:31→11:14)
[2025-02-15 07:36] VITALS: BP 129/74
[2025-02-15] MEDS: HEPARIN SC (07:48)
[2025-02-15] MEDS: DECADRON 4 MG IV (07:48)
--- NOTE | 2025-02-15 09:45 | W.PN.ONC2 ---
Today's Communication / Plan
-
OP follow up will be arranged upon discharge
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
sister at bedside provided updates and questions answered
Impression
Impression
Right upper lobe mass, 7 cm and right hilar /right paratracheal lymphadenopathy, supraclav /subcarinal LNs, and adrenal lesion concerning for malignancy s/p biopsy and bronchial washing with pulm
Hx tobacco abuse
PNA
AECOPD
unintentional weight loss/malnutrition
Plan
Plan
will await path report
abx, steroids, nebs per pulmonary
Subjective/Objective
Subjective
no new complaints
afebrile, room air
Vital Signs:
Vital Signs
Temp Pulse Resp BP Pulse Ox
97.7 F 97 12 129/74 98
02/15/25 07:36 02/15/25 07:36 02/15/25 07:36 02/15/25 07:36 02/15/25 09:03
Lab Results:
Laboratory Data
WBC 8.8 10^3/uL (4.8-10.8) 02/14/25 07:17
Hgb 12.2 g/dL (12.0-16.0) 02/14/25 07:17
Plt Count 350 10^3/uL (130-400) 02/14/25 07:17
eGFR > 60.00 02/14/25 07:16
Physical Exam
General: No Apparent Distress
Cardiology: Normal Sinus Rhythm
Pulmonary: Wheezes
GI: Soft and Normal Bowel Sounds
Extremities: Pulses Present
Skin: Warm and Dry
Psych: Calm and Intact Judgement/Insight
--- NOTE | 2025-02-15 10:00 | W.PN.PUL.V3 ---
Today's Communication / Plan
-
Change Decadron to prednisone with slow taper-prednisone 40 mg daily for 3 days, then 30 mg daily for 3 days then 20 mg daily for 3 days and then 10 mg daily for 3 days
Albuterol as needed
Pathology pending
Outpatient pulmonary follow-up
Assessment
-
64-year-old female 40+ pack years for smoking ongoing presents with 4 weeks of increased productive cough, chest congestion, shortness of breath. She completed a course of Levaquin 3-1/2 weeks ago, steroids 3 weeks ago and was told to come to the
ED after persistent abnormality on chest x-ray and persistent shortness of breath. CT angiogram negative for pulm embolism. We are asked to comment on her CT abnormality
Right upper lobe mass, 7 cm
Concerning for malignancy
Mediastinal and right hilar adenopathy
1.6 cm supraclavicular lymph node on the right
3.1 cm right hilar adenopathy, 5 cm right paratracheal adenopathy, 1.7 cm subcarinal
Acute COPD exacerbation, suspected mild
Productive cough, chest congestion, shortness of breath
For 4 weeks
Failed outpatient Levaquin, steroid therapy
Nonspecific weight loss
Tachycardia
[id number] history of smoking, ongoing
History of migraine headaches
Plan/recommendations
Respiratory status stable-anxious for discharge
Wean oxygen
Assess discharge supplemental oxygen needs
Change Decadron to prednisone with slow taper
Nebulizers as needed-currently not bronchospastic
Tolerated bronchoscopy
Bronchoscopy SHIRIN with some atypical cells-explained this to the patient-pathology still pending
Check cultures
Empiric antibiotics-Levaquin and Flagyl-finite course
The patient underwent bronchoscopy 02/14/2025
Performed brushing and lavage of right upper lobe posterior segment (no C arm needed) and sampling of Station 4R, 7, 11R
Patient should follow-up in the outpatient setting with pulmonary for pathology results
Subjective Data
-
Date of Service:
Date of Service: February 15, 2025
Chief Complaint: Pulmonary Follow Up and Dyspnea Follow Up
Subjective:
Anxious for discharge, no hemoptysis, no shortness of breath, no abdominal pain
Review of Systems
General: Other (. per HPI)
Objective Data
Data Reviewed
Vital Signs / I&O:
Vital Signs
Temp Pulse Resp BP Pulse Ox
97.7 F 97 12 129/74 98
02/15/25 07:36 02/15/25 07:36 02/15/25 07:36 02/15/25 07:36 02/15/25 09:03
Intake and Output
02/14/25 02/15/25 02/16/25
06:59 06:59 06:59
Intake Total 580 / 580 660 / 660
Balance 580 / 580 660 / 660
SaO2: 98
Nasal Cannula flow liters per minute: 2
Physical Exam
General: Respiratory Distress (n) and Comfortable
HEENT: Normocephalic, Anicteric and Moist Mucous Membranes
Cardiovascular: Regular Rhythm
Respiratory: Wheeze (n), Crackles (n), Rhonchi (n), Non-Labored Respirations and Accessory Resp Muscle Use (n)
GI: Soft, Non Distended and Non Tender
Neurology: Awake, Alert and No Motor Deficits
Skin: Warm, Good Color, Cyanosis (n), Jaundice (n) and Rash (n)
Labs/Micro/Reports
Lab Data
02/14/25 07:17
02/14/25 07:16
Microbiology
02/14/25 16:11 Bronch Right Upper Lobe Gram Stain - Preliminary
02/14/25 16:11 Bronch Right Upper Lobe Fungal Culture - Preliminary
Culture in progress.
Positive cultures are reported as soon as detected.
Final report to follow in four to five weeks.
02/14/25 05:52 Nose Nasal Screen MRSA (PCR) - Final
MRSA not detected - performed by PCR methodology.
[2025-02-15 11:38] VITALS: BP 124/71
[2025-02-15 15:04] VITALS: BP 110/66
[2025-02-15] MEDS: DUONEB INH ×2 (15:14→15:34)
--- NOTE | 2025-02-15 15:27 | CM ---
MD entered order for discharge.
Patient weaned to room air Pox 97%.
Pt said Robbin dgt will drive her home.
Offered VN she declined .
PLAN Home no needs
--- NOTE | 2025-02-15 15:36 | W.DS.TRANS ---
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
-
Discharge Instructions:
Discharge Diagnosis/Procedures LUNG MASS WITH ONGOING WORK UP PENDING BROCH
PATH
Diet Regular
Instructions:
Stand-Alone Forms:
Changes to Home Medications: Yes
Discharge Medications:
DC Medications w/original date entered in [facility]
albuterol sulfate 90 mcg/actuation aerosol inhaler 1 inh inhalation R Q4HPRN PRN SOB 02/13/25
diazepam 5 mg tablet 5 mg PO BIDPRN PRN anxiety 02/13/25
fluticasone fur. 200 mcg-umeclid 62.5 mcg-vilant 25 mcg inhalat.powder (Trelegy Ellipta) 1 inh inhalation R DAILY 02/13/25
ibuprofen 400 mg tablet 400 mg PO Q6HPRN PRN MILD PAIN 02/13/25
levofloxacin 500 mg tablet 500 mg PO DAILY 02/13/25
mirtazapine 7.5 mg tablet 7.5 mg PO HS 02/13/25
prednisone 10 mg tablet 10 mg PO DIRECTED #30 tabs 02/15/25
Home Medication Changes
Steroid taper
Pending Results: Yes
Total time spent discharging patient (in min): Bronch path
== END 2025-02-15 16:55 | disposition home or self-care (01) | DRG 181 ==
LOC: 3 WEST ACU 13:46
PROVIDERS: Internal Medicine; ADMITTING PHYSICIAN Internal Medicine; ATTENDING PHYSICIAN Internal Medicine; EMERGENCY PHYSICIAN Student in an Organized Health Care Education/Training Program; FAMILY PHYSICIAN Family Medicine; OTHER PHYSICIAN Internal Medicine Critical Care Medicine; OTHER PHYSICIAN Internal Medicine Hematology & Oncology
PROC: 0B9C8ZX Drainage of Right Upper Lung Lobe, Via Natural or Artificial Opening Endoscopic, Diagnostic (ICD-10-PCS; 2025-02-14)
PROC: 0BD48ZX Extraction of Right Upper Lobe Bronchus, Via Natural or Artificial Opening Endoscopic, Diagnostic (ICD-10-PCS; 2025-02-14)
DX: C34.11 Malignant neoplasm of upper lobe, right bronchus or lung (principal); J44.1 Chronic obstructive pulmonary disease with (acute) exacerbation; R59.0 Localized enlarged lymph nodes; F32.A Depression, unspecified; F41.9 Anxiety disorder, unspecified; Z88.0 Allergy status to penicillin; F17.210 Nicotine dependence, cigarettes, uncomplicated; R09.02 Hypoxemia
CPT/HCPCS: 71045; 71046; 71275; 80048; 80053; 80202; 81459; 83735; 83880; 85025; 85027; 87015; 87070; 87102; 87116; 87205; 87641; 88112; 88173; 88305; 88313; 88341; 88342; 93005; 94640; 99285; Q9967

== ENCOUNTER → 2025-02-18 08:47 | Outpatient (REF) | payer BC, SELFPAY | LOC: PET 08:47 | PROVIDERS: ATTENDING PHYSICIAN Nurse Practitioner Acute Care | DX: C34.11 Malignant neoplasm of upper lobe, right bronchus or lung (principal) | CPT/HCPCS: 78815; A9552 ==

== ENCOUNTER 2025-03-17 23:57 | Observation (INO) | payer BC, SELFPAY ==
[2025-03-17] VITALS (8 sets, daily range): BP systolic 113–137; BP diastolic 67–90; BMI 19.4
[2025-03-17 15:18] LABS: Hematocrit 36.4 % (37.0-47.0); Hemoglobin 12.3 g/dL (12.0-16.0); Mean Corp Hgb Conc. 33.8 g/dL (33.0-37.0); Mean Corpuscular Volume 83.3 fL (81.0-99.0); Nucleated Red Blood Cells % 0 %; Platelet Count 272 10^3/uL (130-400); Red Cell Dist. Width 13.2 % (11.5-14.5)
[2025-03-17 15:32] LABS: ALT (SGPT) 23 U/L (0-35); AST (SGOT) 34 U/L (14-36); Albumin 3.5 g/dl (3.5-5.0); Alkaline Phosphatase 65 U/L (38-126); Blood Urea Nitrogen 28 mg/dl (7-17); Calcium 9.6 mg/dl (8.4-10.2); Carbon Dioxide 32 mmol/L (22-30); Chloride 104 mmol/L (98-107); Glucose 111 mg/dl (70-99); Potassium 4.0 mmol/L (3.5-5.1); Sodium 138 mmol/L (135-145); Total Protein 5.8 g/dl (6.3-8.2); eGFR > 60.00
[2025-03-17 15:44] LABS: Troponin I < 0.012 ng/ml
[2025-03-17] MEDS: DILAUDID 0.5 MG IV ×2 (18:41→22:00)
--- NOTE | 2025-03-17 18:45 | ED.GENMED ---
History of Present Illness
General
Chief Complaint: Breathing Problem
Source: patient and family
Exam Limitations: none
Time Seen by Provider: 03/17/25 18:17
History of Present Illness
History of Present Illness:
64-year-old female complaining of bony pain. Multiple metastasis. However today is having some more left-sided chest pain worse with breathing. This is at the site of a bony metastasis. No fever. Some cough.
Past History
Past History
ED Past Medical History: Cancer, COPD and Other (Patient is medicated currently with Tegretol for facial pain.)
ED Past Surgical History: Gynecological
Social History
Tobacco: Smoker
Alcohol: None
Drug: None
Living: alone
Employment: Employed
Family History
Family History: Other (Noncontributory)
Review of Systems
Review of Systems
All Other Systems: Not applicable
Cardiac: Denies syncope
ABD/GI: Denies abdominal pain
Phy Exam
Physical Exam
Physical Exam:
GENERAL: Alert and oriented. Minimally tachypneic.
EYE: Orbits normal.
NECK: Supple, no significant adenopathy.
ENT: Pharynx without erythema
CARDIAC: Regular rate and rhythm without any obvious murmurs.
LUNGS: Decreased breath sounds diffusely. Mild tachypnea. Mild tenderness over the left lateral lower chest wall where there is some bony swelling noted.
ABDOMEN: Soft, without focal tenderness or distention
NEUROLOGICAL: Alert and oriented , grossly non-focal
SKIN: Warm and dry, no rash or lesion, no discoloration, skin intact.
MUSCULOSKELETAL: No edema,no deformity.Good color
PSYCH: Normal and appropriate interaction.
Scores
Heart Failure Risk
Heart Failure Risk Score: Not Applicable
Course
Orders/Labs/Results
Orders:
Orders
03/17/25 14:43
Electrocardiogram (*1) Urgent
Reason for Study: Chest Pain
03/17/25 14:45
CR Ribs-left 3 Vw W/pa Chest Urgent
Comment:
Reason For Exam: pain
03/17/25 15:09
Complete Blood Count/With Diff Urgent
Comprehensive Metabolic Panel Urgent
Troponin I Urgent
03/17/25 18:28
CT Chest PE Study Urgent
Comment:
Reason For Exam: left cp/sob. known med ca
HYDROmorphone [Dilaudid] 0.5 mg IV NOW STA
03/17/25 18:46
Albuterol Nebs [Ventolin Nebules] 2.5 mg INH R NOW STA
03/17/25 21:54
HYDROmorphone [Dilaudid] 0.5 mg IV NOW STA
03/17/25 22:33
Admit/Transfer Patient As Directed
Co-Sign Provider:
Level of Care: Observation services
Assign to:: Medical/Surgical
Physician / Group: danny
Diagnosis: cancer pain
Code Status As Directed
Resuscitation Status: Do not resuscitate
Reached after discussion with pt or family/Healthcare POA: Yes
DNR Bracelet Application ONCE
PRN Pain Medication Management As Directed
May give lesser potent ordered pain med per pt: Yes
preference::
Protocol:: Medication orders for pain may be administered in a
manner that supports deferring to patient preference
when the pt is:
- Requesting an ordered lesser potent pain medication.
Least to most potent pain medications are defined
as: acetaminophen < NSAID < tramadol < opioids
(morphine, oxycodone, hydromorphone).
- Requesting a lesser dose of the same medication IF
ORDERED.
- Requesting a less intrusive route of administration
if both routes are prescribed by the provider (PO <
IV).
03/18/25 01:16
Acetaminophen [Tylenol] 650 mg PO Q4HPRN PRN
HYDROmorphone [Dilaudid] 0.5 mg IV Q4HPRN PRN
Ibuprofen [Motrin] 400 mg PO Q6HPRN PRN
03/18/25 01:16
Activity As Directed
Activity Level: As Tolerated
Vital Signs As Directed
Frequency: Per unit guidelines
DX Deep Vein Thrombosis Video Routine
03/18/25 06:18
Complete Blood Count/With Diff IN AM
Comprehensive Metabolic Panel IN AM
03/18/25 08:00
Heparin 5,000 units SC Q12
03/18/25 Dinner
Regular
At Your Request: Full Participation
Does patient need a safe tray?: No
Abnormal Lab Results
03/17/25
15:09
WBC 12.3 H 10^3/uL
(4.8-10.8)
Hct 36.4 L %
(37.0-47.0)
Abs Immat Gran (auto) 0.1 H 10^3/uL
(0-0.05)
Absolute Neuts (auto) 9.4 H 10^3/uL
(1.4-6.5)
Absolute Monos (auto) 1.0 H 10^3/uL
(0.1-0.6)
Immature Gran % 0.7 H %
(0-0.5)
Neutrophils % 76.6 H %
(42.2-75.2)
Lymphocytes % 13.9 L %
(20.5-51.1)
Carbon Dioxide 32 H mmol/L
(22-30)
BUN 28 H mg/dl
(7-17)
Creatinine 0.5 L mg/dL
(0.6-1.0)
Glucose 111 H mg/dl
(70-99)
Total Protein 5.8 L g/dl
(6.3-8.2)
03/17/25 15:09
03/17/25 15:09
Vital Signs
Initial and Last Documented VS:
Initial Vital Signs
Temp Pulse Resp BP Pulse Ox
98.1 F 111 24 137/90 95
03/17/25 14:39 03/17/25 14:39 03/17/25 14:39 03/17/25 14:39 03/17/25 14:39
Last Documented Vital Signs
Temp Pulse Resp BP Pulse Ox
97.7 F 120 17 142/72 97
03/18/25 07:50 03/18/25 07:50 03/18/25 07:50 03/18/25 07:50 03/18/25 07:50
*Radiology
Radiology exam reviewed: radiology read reviewed (Worsening CA metastasis. No pulmonary emboli)
*Pulse Oximetry
SaO2: 97
Nasal Cannula flow liters per minute: 3
Oxygen Mode of Delivery: Room air
Patient hypoxic: no (95)
*Critical Care Note
Total Time (30-74mins, 75-104mins- exclusive of procedures): Not Applicable
Update Note
Update Note:
Patient with intractable pain. Reasonable inpatient management
ED Attending Note
-
Portions of this chart may have been created with voice recognition software.� Occasional wrong word or��sound alike� substitutions may have occurred due to the inherent limitations of voice recognition software.
Discharge Plan
Departure
Patient Disposition: Admit
Date of Disposition: 03/17/25
Time of Disposition: 22:12
Presentation/result/management discussed w/ accepting MD/DO: Hospitalist
Discharge Problem:
Metastatic lung CA, Intractable pain
Interventions
Interventions:
*Risk Screen - Suicide Last Done: 03/18/25 00:50
*General Assessment Last Done: 03/17/25 14:39
*Neglect/Abuse Screening Last Done: 03/17/25 14:39
*ED- Fall Risk Assessment Last Done: 03/17/25 21:34
*ED COVID-19 Vaccine History Last Done: 03/18/25 00:50
*Nursing Disposition Last Done: 03/18/25 00:52
ED- Cardiac Assessment Last Done: 03/17/25 21:39
ED- Pulmonary Assessment Last Done: 03/17/25 21:39
Discharge Date and Time
Discharge Date/Time: 03/18/25 00:52
[2025-03-17] MEDS: VENTOLIN NEBULES 2.5 MG INH (19:41)
--- NOTE | 2025-03-17 22:35 | HPS.HSE ---
Family Physician
-
Family Physician: Shaq Maynard
Chief Complaint
-
cancer pain
History of Present Illness
64-year-old female past medical history of right upper lobe lung cancer diagnosed 2 months ago with diffuse bone metastases on chemotherapy, COPD on 2 L baseline, migraines, presenting with diffuse bone pains. She has been taking Tylenol, Motrin,
Dilaudid at home for pain without improvement. She is supposed to see palliative care in the near future. Her oncologist is Dr. Yuan at [place].
She is a former smoker. She denies alcohol use.
Medical History
Past Medical History
Past Medical History: Reports Other (right upper lobe lung cancer diagnosed 2 months ago with diffuse bone metastases on chemotherapy, COPD on 2 L baseline, migraines)
Past Surgical History: Reports None
Social History
Tobacco: Former Smoker
Alcohol: None
Drug: None
Family History
Family History: Not pertinent
Allergies / Home Medications
Allergies reflects when Allergies were last updated in [employer].
Home Medications with original date entered in [employer] [facility] [facility]
Allergy/Medication List:
Allergies
Allergy/AdvReac Type Severity Reaction Status Date / Time
Penicillins Allergy Hives Verified 03/17/25 14:42
Home Medications
albuterol sulfate 90 mcg/actuation aerosol inhaler 1 inh inhalation R Q4HPRN PRN SOB 02/13/25
diazepam 5 mg tablet 5 mg PO BIDPRN PRN anxiety 02/13/25
fluticasone fur. 200 mcg-umeclid 62.5 mcg-vilant 25 mcg inhalat.powder (Trelegy Ellipta) 1 inh inhalation R DAILY 02/13/25
ibuprofen 400 mg tablet 400 mg PO Q6HPRN PRN MILD PAIN 02/13/25
levofloxacin 500 mg tablet 500 mg PO DAILY 02/13/25
mirtazapine 7.5 mg tablet 7.5 mg PO HS 02/13/25
prednisone 10 mg tablet 10 mg PO DIRECTED #30 tabs 02/15/25
Review of Systems
-
History Source: Patient
A 12 point ROS was completed and negative except as noted: Yes
Constitutional: Reports No Symptoms
EENT: Reports No Symptoms
Respiratory: Reports No Symptoms
Cardiac: Reports No Symptoms
Abdomen/GI: Reports No Symptoms
: Reports No Symptoms
Musculoskeletal: Reports No Symptoms
Skin: Reports No Symptoms
Neurological: Reports No Symptoms
Endocrine: Reports No Symptoms
Hematologic/Lymphatic: Reports No Symptoms
Psych: Reports No Symptoms
Physical Exam
Vital Signs
Vital Signs
Temp Pulse Resp BP Pulse Ox
98.1 F 102 26 121/67 94
03/17/25 14:39 03/17/25 21:30 03/17/25 21:30 03/17/25 21:00 03/17/25 21:00
Physical Exam
General: Well Developed, Well Nourished and No Apparent Distress
HEENT: NormoCephalic, Moist mucous membranes and Atraumatic
Respiratory: Clear
Cardiac: S1/S2 and Regular Rhythm; No Murmur or Rub
GI: Soft, Non Tender, Non Distended and Normal Bowel Sounds; No Organomegaly
Rectal: Deferred by Provider
Musculoskeletal: No Clubbing, No Cyanosis and No Edema
Skin: No Rash
Neuro: Nonfocal/grossly intact
Laboratory Results
-
03/17/25 15:09
03/17/25 15:09
Laboratory Results
Total Bilirubin 0.4 mg/dl (0.2-1.3) 03/17/25 15:09
AST 34 U/L (14-36) 03/17/25 15:09
ALT 23 U/L (0-35) 03/17/25 15:09
Alkaline Phosphatase 65 U/L (38-126) 03/17/25 15:09
Troponin I < 0.012 ng/ml 03/17/25 15:09
Data Reviewed
-
Lab Data: Labs Reviewed by me
Old Records: Reviewed
Impression/Plan
-
IMPRESSION:
PLAN:
# Severe pain secondary to bone metastases from lung cancer
-Continue Tylenol, ibuprofen, IV Dilaudid which has helped
Right upper lobe lung cancer diagnosed 2 months ago with diffuse bone metastases
-On chemotherapy
-Follows with Dr. Yuan at [place]
COPD
-On 2 L baseline
- Continue albuterol
Migraines
Anxiety/depression
- Continue mirtazapine, diazepam
DNR/DNI
DVT prophylaxis�heparin
Regular diet
[2025-03-18] VITALS: BP 124/80
[2025-03-18 00:45] VITALS: BP 151/90; BMI 18.8
[2025-03-18] MEDS: DILAUDID 0.5 MG IV ×3 (01:24→10:22)
--- NOTE | 2025-03-18 02:11 | PTCARENOTE ---
Patient received as admission for emergency department. Patient transported by Emergency room nurse. Patient endorses severe pain in the bilateral rib areas and left lower back requiring intervention with IV push Dilaudid for relief. Dyspnea on
exertion is noted. Patient maintained on 3l of supplemental oxygen via nasal cannula. Admission assessment and intake vital sisgns docuemented per protocol.
[2025-03-18] MEDS: TYLENOL 650 MG PO (04:36)
[2025-03-18] MEDS: DILAUDID 0.25 MG IV (05:17)
[2025-03-18] MEDS: DUONEB 3 ML INH ×2 (05:27→10:52)
[2025-03-18] MEDS: VALIUM 5 MG PO (06:41)
[2025-03-18 06:59] LABS: Hematocrit 36.8 % (37.0-47.0); Hemoglobin 12.2 g/dL (12.0-16.0); Mean Corp Hgb Conc. 33.2 g/dL (33.0-37.0); Mean Corpuscular Volume 84.6 fL (81.0-99.0); Nucleated Red Blood Cells % 0 %; Platelet Count 286 10^3/uL (130-400); Red Cell Dist. Width 13.3 % (11.5-14.5)
[2025-03-18 07:36] LABS: ALT (SGPT) 22 U/L (0-35); AST (SGOT) 34 U/L (14-36); Albumin 3.5 g/dl (3.5-5.0); Alkaline Phosphatase 74 U/L (38-126); Blood Urea Nitrogen 20 mg/dl (7-17); Calcium 9.7 mg/dl (8.4-10.2); Carbon Dioxide 30 mmol/L (22-30); Chloride 102 mmol/L (98-107); Estimated Creatinine Clearance 73 ml/min; Glucose 98 mg/dl (70-99); Potassium 3.9 mmol/L (3.5-5.1); Sodium 139 mmol/L (135-145); Total Protein 5.8 g/dl (6.3-8.2); eGFR > 60.00
[2025-03-18] MEDS: HEPARIN 5000 UNITS SC (07:41)
[2025-03-18 07:50] VITALS: BP 142/72
--- NOTE | 2025-03-18 08:38 | W.PN.UPDATE ---
Addendum entered and electronically signed by Addison Warren MD 03/18/25 13:48:
On discharge given the patient OxyContin 10 mg every 12 hours, dispense 14 tabs, Percocet as needed, dispense 10 tabs. These medications are for cancer related pain due to metastatic lung cancer to the bones. As stated a limited supply has been
given to the patient to allow her time to have follow-up with her oncologist.
Total time spent on d/c = 35 min. This included today's physical exam, progress note, review of laboratory and diagnostic data, preparation of discharge documents and prescriptions, and discussions about the pt's hospital course and discharge plan
with the patient and other medical esthetician involved in the patient's care.
Original Note:
Update Note
Progress Note Update
I saw and evaluated the patient. I reviewed the resident�s note and agree with findings and plan as documented in the resident�s note.
Pt c/o severe bony pain.
Gen: NAD, AAOx3.
Eyes: EOMI, PERRLA, no scleral icterus.
Neck: supple.
CV: tachy, +S1/S2, no m/r/g.
Resp: CTAB, no rales, wheezes, or rhonchi.
Abd: +BS, soft, NT, ND
Skin: No rashes.
Neuro: CN 2-12 intact, non-focal.
Psych: tearful
Severe pain secondary to bone metastases from lung cancer:
-start Oxycontin 10mg PO Q12H
-Dilaudid 0.5mg IV x 1 now, change PRN IV dilaudid to 0.5mg IV Q3HPRN
-change Tylenol to 1g PO Q8H
-initiate bowel regimen
RUL lung CA:
-diagnosed 2 months ago with diffuse bone metastases
-On chemotherapy
-Follows with Dr. Yuan at [place]
COPD:
-not in acute exac
-chronic hypoxemic respiratory failure, on 2L NC baseline
-continue albuterol
Other problems:
Migraines
Anxiety/depression: cont mirtazapine/diazepam
DNR/DNI/heparin
Dispo: Likely d/c later today as pt is adamant about leaving today.
[2025-03-18] MEDS: COLACE 100 MG PO (10:22)
[2025-03-18] MEDS: SENOKOT 8.6 MG PO (10:22)
[2025-03-18] MEDS: OXYCONTIN (CONTROLLED RELEASE) 10 MG PO (10:22)
[2025-03-18] MEDS: MIRALAX 17 GRAMS TUBE (10:22)
[2025-03-18] MEDS: TYLENOL 1000 MG PO (10:22)
--- NOTE | 2025-03-18 10:39 | W.PN.HOSP.TC ---
Today's Communication/Plan
-
Start OxyContin 10 mg p.o. every 12 hours
Tylenol 1 g p.o. 8 hours
Medically stable to be discharged if pain controlled on p.o. regimen
Assessment / Plan
Assessment / Plan
Ms. Gongora is a 63-year-old female with right upper lobe lung cancer diagnosed 2 months ago with diffuse bone metastases on chemotherapy, COPD on 2 L baseline, and migraines who presented to the ED on 03/17 for diffuse bone pains. Her oncologist .
Kwabena at [place]. She was admitted to [facility] for further management.
#Severe pain secondary to bone metastases
#Right upper lobe lung cancer
Follows with Dr. Yuan at [place] outpatient. She is currently getting chemotherapy. Her cancer was diagnosed 2 months ago with diffuse bone mets.
- S/p IV Dilaudid 0.5 mg x 1, then as needed IV Dilaudid to 0.5 mg IV every 3 hours as needed
- Start OxyContin 10 mg p.o. every 12 hours
- Tylenol to 1 g p.o. every 8 hours
- Bowel regimen
#COPD
#Chronic hypoxic respiratory failure, on 2 L nasal cannula baseline
- Continue albuterol as needed
#Anxiety
#Depression
- Continue mirtazapine 7.5 mg p.o. at bedtime
- Continue diazepam 5 mg p.o. twice daily as needed
DVT prophylaxis: Heparin
CODE STATUS: DNR
Anticipated Discharge: Today (After transition to p.o. pain regimen)
Subjective/Interval History
-
Date of Service: March 18, 2025
-This morning, she is sitting up in bed with her daughter at bedside. She is excited to try p.o. pain control and eager to go home. She denies pain currently.
Objective Data
-
Labs:
Laboratory Results
03/18/25
06:18
WBC 12.8 H
Hgb 12.2
Hct 36.8 L
Plt Count 286
Sodium 139
Potassium 3.9
Chloride 102
Carbon Dioxide 30
BUN 20 H
Creatinine 0.6
Glucose 98
Calcium 9.7
Total Bilirubin 0.5
AST 34
ALT 22
Alkaline Phosphatase 74
Vital Signs:
Vital Signs
Temp Pulse Resp BP Pulse Ox
97.7 F 120 17 142/72 97
03/18/25 07:50 03/18/25 07:50 03/18/25 07:50 03/18/25 07:50 03/18/25 07:50
I&O
03/17/25 03/18/25 03/19/25
06:59 06:59 06:59
Intake Total 480 / 480
Balance 480 / 480
Review of Systems
-
All other systems: Reviewed and negative
Physical Exam
-
General: Well Developed, Well Nourished, No Apparent Distress, Comfortable and Conversant
HEENT: Normocephalic, Atraumatic and Moist Mucous Membranes
Respiratory: Non Labored Respirations
Cardiac: Regular Rhythm and S1/S2
GI: Soft, Nontender and Nondistended
Musculoskeletal: No Clubbing, No Cyanosis and No Edema
Psych: Calm and Intact Judgement/Insight
[2025-03-18 13:29] VITALS: BMI 18.8
--- NOTE | 2025-03-18 13:44 | W.DCSUMMARY ---
Discharge Summary
Discharge Data
Date of Admission: 03/17/25
Date of Discharge: 03/18/25
-
Pending Results: No
Hospital Course
Discharging Physician : Scott Ding MD/YADI
Disposition : Home
Principal Discharge diagnosis : Severe pain secondary to bone metastasis
Chronic Discharge diagnosis : Metastatic Lung Cancer
Hospital Course : Ms. Gongora is a 63-year-old female with right upper lobe lung cancer diagnosed 2 months ago with diffuse bone metastases on chemotherapy, COPD on 2 L baseline, and migraines who presented to the ED on 03/17 for diffuse bone pains.
Her oncologist Dr. Yuan at [place]. She was admitted to [facility] for further management and was medically stable for discharge on 03/18. Her new medications at the time of discharge were Oxycontin 10mg q12h, Percocet 5-325mg q8h prn, and bowel
regimen of Senna and Miralax. She was instructed to follow up with PCP in less than a week.
Her hospital course by problem is as below:
1. Severe pain secondary to bone metastases
2. Right upper lobe lung cancer
Follows with Dr. Yuan at [place] outpatient. She is currently getting chemotherapy. Her cancer was diagnosed 2 months ago with diffuse bone mets. CT Chest and CXR as below.
- S/p IV Dilaudid 0.5 mg x 1, then as needed IV Dilaudid to 0.5 mg IV every 3 hours as needed
- Start OxyContin 10 mg p.o. every 12 hours
-- DC on Oxycontin 10mg q12h and Percocet 5-325mg q8h prn
- Tylenol to 1 g p.o. every 8 hours
- Miralax and Senna for bowel regimen
3. COPD
4. Chronic hypoxic respiratory failure, on 2 L nasal cannula baseline
- Continue albuterol as needed
5. Anxiety
6. Depression
- Continue mirtazapine 7.5 mg p.o. at bedtime
- Continue diazepam 5 mg p.o. twice daily as needed
Important imaging findings :
CT Chest 03/17:
1. No evidence of pulmonary embolism.
2. Worsening right upper lobe lung cancer with probable component of obstructive atelectasis.
3. Worsening metastatic mediastinal, hilar and supraclavicular lymphadenopathy.
4. Worsening left adrenal gland metastasis.
CXR 03/17:
No evidence for left rib fracture or other significant bony abnormality of the left ribs.
Discharge Plan
-
Patient Disposition: Home (Routine Discharge)
Discharge Diagnosis/Procedures: Severe pain secondary to bone metastasis
Condition: Fair
Diet: No restrictions
Activity: No restrictions
Driving Restrictions: As prior to admission
Bathing Restrictions: None
Referrals:
Shaq Maynard DO [Family Provider, [facility]] - in less than 1 week
Referral Note: Follow up within a week about this hospitalization.
Prescriptions:
New
oxycodone [OxyContin] 10 mg Tablet,Oral Only,Ext.Rel.12 Hr
10 mg PO Q12 Qty: 14 0RF
sennosides [Lorraine-pancho] 8.6 mg Tablet
8.6 mg PO BID Qty: 0 0RF
polyethylene glycol 3350 17 gram Powder In Packet
17 g feeding tube DAILY Qty: 0 0RF
docusate sodium 100 mg Capsule
100 mg PO BID Qty: 0 0RF
oxycodone-acetaminophen [Percocet] 5-325 mg tablet
1 tab PO Q8H PRN (Reason: severe cancer pain, breakthrough) Qty: 10 0RF
Rx Instructions:
breakthrough for pain due to metastatic lung cancer to bone
Continued
albuterol sulfate 90 mcg/actuation Hfa Aerosol Inhaler
1 inh INHALATION R Q4HPRN PRN (Reason: SOB)
diazepam 5 mg Tablet
5 mg PO BIDPRN PRN (Reason: anxiety)
mirtazapine 7.5 mg Tablet
7.5 mg PO HS
ibuprofen 400 mg Tablet
400 mg PO Q6HPRN PRN (Reason: MILD PAIN)
Discharge Orders:
Discharge Patient (As Directed); Ordered 03/18/25
Ordered By: Addison Warren
Discharge Date and Time
Print Language: [place]
--- NOTE | 2025-03-18 14:00 | PTCARENOTE ---
Pt refused PRN PO Elsiium @0641- disregard on SEP. Medication wasted with nurse educator.
--- NOTE | 2025-03-18 14:26 | CM ---
manager truck reviewed patent's chart and OBS letter provided to patient signed and placed on chart, patient lives alone in a 2 story home no steps to enter, patient is independent with adl's and ambulation, patient has home oxygen in home. Home
today no needs, Daughter to transport and will bring in patient's home oxygen.
PCP: Dr Maynard
Pharmacy: [facility]
[2025-03-18 15:00] VITALS: BP 139/80
== END 2025-03-18 15:31 | disposition home or self-care (01) ==
LOC: 3 WEST ACU 23:57
PROVIDERS: Emergency Medicine; ADMITTING PHYSICIAN Hospitalist; ATTENDING PHYSICIAN Internal Medicine; EMERGENCY PHYSICIAN Emergency Medicine; FAMILY PHYSICIAN Family Medicine
DX: G89.3 Neoplasm related pain (acute) (chronic) (principal); C34.11 Malignant neoplasm of upper lobe, right bronchus or lung; C79.51 Secondary malignant neoplasm of bone; C79.72 Secondary malignant neoplasm of left adrenal gland; J44.9 Chronic obstructive pulmonary disease, unspecified; G43.909 Migraine, unspecified, not intractable, without status migrainosus; J96.11 Chronic respiratory failure with hypoxia; F32.A Depression, unspecified; F41.9 Anxiety disorder, unspecified; Z66 Do not resuscitate; Z79.899 Other long term (current) drug therapy; Z87.891 Personal history of nicotine dependence
CPT/HCPCS: 71101; 71275; 80053; 84484; 85025; 93005; 94640; 96374; 96375; 99285; G0378; Q9967